=== PATIENT | female | born 1935 | race Caucasian/White ===

== ENCOUNTER 2019-03-05 05:57 | Inpatient (IN) ==
[2019-03-05 06:59] LABS: BASO# 0.01 X1000 (0.0-0.2); BASO% 0.2 % (0.0-0.8); HEMATOCRIT 35.9 % (37.0-47.0); HEMOGLOBIN 11.8 g/dL (12.0-16.0); LYMPH# 0.38 X1000 (1.2-3.4); LYMPH% 7.6 % (20.5-51.1); MCH 33.8 PG (27-31); MCHC 32.9 g/dL (33-37); MCV 102.9 FL (81-99); MONO# 0.22 X1000 (0.11-0.59); MONO% 4.4 % (1.7-9.3); MPV 11.7 FL (7.4-10.4); NEUT% 87.8 % (42.2-75.2); PLT 120 X1000 (130-400); RBC 3.49 XMIL (4.2-5.4); RDW 14.9 % (11.5-14.5); WBC 5.01 X1000 (4.8-10.8)
[2019-03-05 07:04] LABS: AGAP 13; ALBUMIN 3.1 g/dL (3.5-5.0); ALKALINE PHOSPHATASE 68 U/L (32-104); BUN 11 mg/dL (8-22); CALCIUM 7.7 mg/dL (8.8-10.2); CHLORIDE 101 mmol/L (98-107); COSMO 273; CREATININE 0.7 mg/dL (0.5-0.9); ESTIMATED GFR > 60; GLUCOSE 137 mg/dL (70-104); GOT 40 U/L (10-30); GPT 27 U/L (10-36); POTASSIUM 3.4 mmol/L (3.5-5.1); SODIUM 136 mmol/L (136-145); TCO2 22 mmol/L (25-35); TOTAL BILIRUBIN 0.82 mg/dL (0.20-1.00); TOTAL PROTEIN 6.2 g/dL (6.3-8.3)
[2019-03-05] MEDS ORDERED: TYLENOL PO ONE (07:14)
--- NOTE | 2019-03-05 07:18 | PROVIDER DOCUMENTATION ---
HPI-Fever - General Chief Complaint: Fever Stated Complaint: SOB, FEVER, UNABLE TO HOLD LIQUIDS DOWN Time Seen by Provider: 03/05/19 07:03 Source: patient, family Allergies/Adverse Reactions: Patient Allergies Allergy/AdvReac Type Severity Reaction Status Date / Time codeine AdvReac Intermediate NAUSEA/VOMI Verified 02/03/19 04:24 TING Home Medications: Home Medication List Medication Instructions Recorded Confirmed Last Taken Type Aspirin [Lo-Dose Aspirin EC] 81 mg PO HS 01/27/18 03/05/19 11/02/18 History Cholecalciferol (Vitamin D3) 1,000 unit PO DAILY 01/27/18 03/05/19 11/03/18 History [Vitamin D3] Losartan [Cozaar] 50 mg PO DAILY 01/27/18 03/05/19 11/03/18 History SIMVAstatin [Zocor] 80 mg PO QHS 01/27/18 03/05/19 11/02/18 History Dexamethasone 20 mg PO ORDERED 03/08/18 03/05/19 11/03/18 History Ferrous Sulfate 325 mg PO BID 03/08/18 03/05/19 11/03/18 History Omeprazole [Prilosec] 20 mg PO DAILY@0700 03/08/18 03/05/19 11/03/18 History Acetaminophen [Tylenol Extra 650 mg PO Q8-12H PRN PRN 03/10/18 03/05/19 11/02/18 History Strength] Bortezomib [Velcade] 2.1 mg SUBQ DIRECTED 04/30/18 03/05/19 11/03/18 History Cyanocobalamin 1,000 microgm IM ORDERED 04/30/18 03/05/19 10/27/18 History Cetirizine [Zyrtec] 10 mg PO DAILY 06/04/18 03/05/19 11/02/18 History Methocarbamol 1 tab PO TID PRN 09/17/18 03/05/19 10/27/18 History Valacyclovir [Valtrex] 500 mg PO DAILY 10/18/18 03/05/19 11/02/18 History Warfarin [Coumadin] 1 mg PO QHS 10/18/18 03/05/19 11/02/18 History - History of Present Illness-Fever Fever Severity/Quality: reports: greater than 100.5 F Onset/Duration: reports: 2 days ago Timing: reports: still present Severity: reports: moderate Context: reports: cancer-chemotherapy Cognitive Baseline: alert, oriented x3 Associated Symptoms: reports: cough, diarrhea, shortness of breath, trouble walking Similar Symptoms Previously?: No Review of Systems - Adult - REVIEW OF SYSTEMS - ADULT ROS:: unobtainable per condition Constitutional: reports: see HPI Eyes: reports: no symptoms reported Ears, Nose, Mouth & Throat: reports: no symptoms reported Cardiovascular: reports: no symptoms reported Respiratory: reports: cough, shortness of breath Gastrointestinal: reports: diarrhea Genitourinary: reports: no symptoms reported Musculoskeletal: reports: no symptoms reported Integumentary: reports: no symptoms reported Neurological: reports: no symptoms reported Psychiatric: reports: no symptoms reported Endocrine: reports: no symptoms reported Hematologic/Lymphatic: reports: no symptoms reported Allergic/Immunologic: reports: no symptoms reported All Other Systems: Reviewed and Negative Past History - Adult - PAST MEDICAL HISTORY-ADULT Review of Records: reports: Old Records Reviewed Physical Exam-General - CONSTITUTIONAL General Appearance: mild distress - EYES Eyes: PERRL/EOMI, pink conjunctivae - HEAD, EARS, NOSE, MOUTH & THROAT HENMT: normocephalic/atraumatic, moist mucous membranes - NECK Neck: non-tender, full range of motion, supple - RESPIRATORY Respiratory: wheezing (bilat) - CARDIOVASCULAR Cardiovascular: normal peripheral pulses, regular rate, rhythm, no edema, no JVD - GASTROINTESTINAL (ABDOMEN) Abdominal Exam: non tender, soft, no organomegaly - LYMPHATIC Lymphatic: no adenopathy - MUSCULOSKELETAL Back Exam: normal inspection, no CVA tenderness, no vertebral tenderness Extremity: normal range of motion, non-tender, normal gait, normal inspection - SKIN Integumentary: normal color. negative: rash - NEUROLOGIC Neurologic: supervisor shop II-XII nml as tested, grossly normal - PSYCHIATRIC Psych/Mental Status: normal mood/affect, normal thought content Progress - PLAN OF CARE/RESULTS Progress/Plan/Lab Results: Vital Signs - 8 hr 03/05/19 06:05 Temperature 103.1 F H Pulse Rate 102 H Respiratory Rate 19 Blood Pressure 164/85 O2 Sat by Pulse Oximetry 92 L 03/05/19 06:07 Influenza Screen - Final Nasopharyngeal Laboratory Results - last 24 hr 03/05/19 03/05/19 03/05/19 06:37 06:37 06:37 WBC 5.01 RBC 3.49 L Hgb 11.8 L Hct 35.9 L MCV 102.9 H MCH 33.8 H MCHC 32.9 L RDW Std Deviation 14.9 H Plt Count 120 L MPV 11.7 H Neut % (Auto) 87.8 H Lymph % (Auto) 7.6 L Mcminn % (Auto) 4.4 Eos % (Auto) 0.0 Baso % (Auto) 0.2 Neut # (Auto) 4.40 Lymph # (Auto) 0.38 L Mcminn # (Auto) 0.22 Eos # (Auto) 0.00 Baso # (Auto) 0.01 Sodium 136 Potassium 3.4 L Chloride 101 Carbon Dioxide 22 L Anion Gap 13 BUN 11 Creatinine 0.7 Estimated GFR/1.73 m2 > 60 BUN/Creatinine Ratio 16 Glucose 137 H Calculated Osmolality 273 Calcium 7.7 L Total Bilirubin 0.82 AST 40 H ALT 27 Alkaline Phosphatase 68 Total Protein 6.2 L Albumin 3.1 L Globulin 3.1 Albumin/Globulin Ratio 1.0 Plasma Lactate 1.2 Urine Source Urine Color Urine Turbidity Urine pH Ur Specific [place] Urine Protein Ur Glucose (Stick) Ur Ketones (Stick) Urine Blood Urine Nitrite Urine Bilirubin Urobilinogen Dipstick Urine Leukocytes Urine WBC (Auto) Urine RBC (Auto) U Epithel Cells (Auto) Urine Bacteria (Auto) 03/05/19 08:30 WBC RBC Hgb Hct MCV MCH MCHC RDW Std Deviation Plt Count MPV Neut % (Auto) Lymph % (Auto) Mcminn % (Auto) Eos % (Auto) Baso % (Auto) Neut # (Auto) Lymph # (Auto) Mcminn # (Auto) Eos # (Auto) Baso # (Auto) Sodium Potassium Chloride Carbon Dioxide Anion Gap BUN Creatinine Estimated GFR/1.73 m2 BUN/Creatinine Ratio Glucose Calculated Osmolality Calcium Total Bilirubin AST ALT Alkaline Phosphatase Total Protein Albumin Globulin Albumin/Globulin Ratio Plasma Lactate Urine Source CLEAN CATCH Urine Color YELLOW Urine Turbidity HAZY Urine pH 6.0 Ur Specific [place] 1.008 Urine Protein 50 A Ur Glucose (Stick) NEGATIVE Ur Ketones (Stick) 40 A Urine Blood MODERATE A Urine Nitrite NEGATIVE Urine Bilirubin NEGATIVE Urobilinogen Dipstick NORMAL Urine Leukocytes MODERATE A Urine WBC (Auto) TNTC A Urine RBC (Auto) 10-20 A U Epithel Cells (Auto) <10 Urine Bacteria (Auto) 4+ Orders Category Date Time Status Admit - [facility] Routine AdmDCTranf 03/05/19 09:21 Active Activity - Up with Assistance ORDERED Care 03/05/19 09:21 Active DVT/PE Risk Assess/Protocol [QM] ORDERED Care 03/05/19 09:21 Completed Intake and Output-Strict ORDERED Care 03/05/19 09:21 Active Update & Confirm Home Medicati ROUTINE Care 03/05/19 09:25 Active Vital Signs Order Q 8-HR ASSESS Care 03/05/19 09:21 Active Z-Document. for Tele Applied ORDERED Care 03/05/19 09:22 Completed Regular Diet Diet 03/05/19 09:22 Active CHEST-2 VIEWS [RAD] Stat Exams 03/05/19 07:14 Completed BLOOD CULTURE [BLDCUL] Stat Lab 03/05/19 06:45 Received CBC WITH DIFF [HEME] Routine Lab 03/06/19 06:00 Ordered CBC WITH ELECTRONIC DIFF [HEME] Stat Lab 03/05/19 06:37 Completed CMP [COMPREHENSIVE METABOLIC PANEL] [CHEM] Stat Lab 03/05/19 06:37 Completed COMPREHENSIVE METABOLIC PANEL [CHEM] Routine Lab 03/06/19 06:00 Ordered Flu Swab [INFLUENZA SCREEN A/B] Stat Lab 03/05/19 06:07 Completed LACTATE, PLASMA [CHEM] Stat Lab 03/05/19 06:37 Completed SPUTUM CULTURE WITH GRAM STAIN [RM] Routine Lab 03/05/19 09:23 Uncollected URINALYSIS W/POSS RFLX CULT [URINALYSIS] Stat Lab 03/05/19 08:30 Completed URINE CULTURE [RM] Routine Lab 03/05/19 09:20 Received Acetaminophen [Tylenol] Med 03/05/19 07:14 Discontinued 1,000 mg PO NOW ONE Acetaminophen [Tylenol] Med 03/05/19 09:21 Active 650 mg PO Q6H PRN PRN Azithromycin 500 mg/Ns [Zithromax 500 mg/Ns] Med 03/05/19 08:28 Discontinued 500 mg in 250 ml IV NOW CefTRIAXONE [Rocephin] 2 gm Med 03/05/19 08:28 Discontinued 0.9% Sodium Chloride Inj [Ns] 50 ml IV NOW Enoxaparin [Lovenox] Med 03/05/19 09:30 Discontinued 40 mg SUBQ Q24H Omeprazole [Prilosec] Med 03/06/19 07:00 Active 40 mg PO DAILY@0700 Incentive Spirometer RTQ4H Ot 03/05/19 11:30 Completed Incentive Spirometer RTQ4H Ot 03/05/19 15:30 Completed Incentive Spirometer RTQ4H Ot 03/05/19 19:30 Completed Incentive Spirometer RTQ4H Ot 03/05/19 23:30 Completed Incentive Spirometer RTQ4H Ot 03/06/19 03:30 Completed Incentive Spirometer RTQ4H Ot 03/06/19 07:30 Completed Incentive Spirometer RTQ4H Ot 03/06/19 11:30 Completed Incentive Spirometer RTQ4H Ot 03/06/19 15:30 Completed Incentive Spirometer RTQ4H Ot 03/06/19 19:30 Completed Incentive Spirometer RTQ4H Ot 03/06/19 23:30 Completed Telemetry [OM.EQ] Routine Ot 03/05/19 09:21 Active Transfer/Admit Order [TRANSFER] Routine Transfer 03/05/19 09:25 Completed Result Diagrams: 03/05/19 06:37 03/05/19 06:37 Departure - Departure Date of Disposition Decision: 03/05/19 Time of Disposition Decision: 01:00 DIAGNOSIS: Pneumonia Qualifiers: Laterality: right Disposition: ADMITTED INPATIENT 09 Certified Medical Emergency: Emergent Condition: Serious - Critical Care Note This patient required my direct & personal management of CC.: Yes Total Time (mins): 41 Critical Care Statement: This patient required my direct personal management to treat or rule out processes, the absence of which, could potentiallly result in sudden, clinically significant life or limb threatening deterioration. Attestation - Physician/ LETA Attestation The physician spent face to face time with patient:: Yes Advanced Practice Provider documentation review:: Supervising physician onsite and consulted in the evaluation and care of this patient. The physician did have a face to face encounter with the patient.
--- NOTE | 2019-03-05 07:38 | Diag Imaging Result Doc PS360 ---
EXAM: CHEST-2 VIEWS HISTORY: short of breath TECHNIQUE: Chest two views COMPARISON: None. FINDINGS: The lungs are hyperexpanded. There are dense infiltrates in the mid right lung. No cardiomegaly. Mild increased interstitial markings throughout both lungs representing fibrosis or pulmonary edema. Trace pleural fluid. IMPRESSION: Right upper lobe pneumonia with fibrosis or pulmonary edema. Electronically signed by Paresh Mckeon 03/05/2019 7:36 AM
[2019-03-05] MEDS ORDERED: ZITHROMAX 500 MG/NS 500 MG/250 ML IVPB IV ONE (08:28)
[2019-03-05] MEDS ORDERED: ROCEPHIN 2 GM in NS 50 ML IV ONE (08:28)
[2019-03-05 08:44] LABS: URINE SOURCE CLEAN CATCH
[2019-03-05 08:49] LABS: BILIRUBIN URINE NEGATIVE (NEGATIVE); BLOOD URINE MODERATE (NEGATIVE); COLOR YELLOW; GLUCOSE URINE NEGATIVE (NEGATIVE); KETONE URINE 40 mg/dL (NEGATIVE); LEUKOCYTES URINE MODERATE (NEGATIVE); NITRITE URINE NEGATIVE (NEGATIVE); PROTEIN URINE 50 mg/dL (NEGATIVE); SP GRAVITY URINE 1.008; TURBIDITY URINE HAZY (CLEAR); UROBILINOGEN URINE NORMAL (NORMAL)
[2019-03-05 08:50] LABS: UR EPITHELIAL CELLS <10 /HPF (<10); URINE BACTERIA 4+ /HPF; URINE WBC TNTC /HPF (<10)
[2019-03-05] MEDS ORDERED: LOVENOX SUBQ SCH (09:30)
[2019-03-05] MEDS ORDERED: ZITHROMAX 500 MG/NS 500 MG/250 ML IVPB ONE (09:47)
[2019-03-05] MEDS ORDERED: ROBITUSSIN-DM PO PRN (09:47)
[2019-03-05] MEDS ORDERED: DUONEB (A & A) INH PRN (09:57)
--- NOTE | 2019-03-05 10:24 | HISTORY AND PHYSICAL ---
CHIEF COMPLAINT: Fever, cough, shortness of breath. HISTORY OF PRESENT ILLNESS: This is an 83-year-old female with a history of multiple myeloma followed by Dr. Wayne, as well as gastroesophageal reflux disease and hypertension. She presented to the ER complaining of 48 hours of productive cough, fever, and just generalized body aches and feeling weak. The daughter checked her temperature prior to coming to the emergency room, stated it was 102. On arrival to the emergency room, she had a fever of 103.1 with room air saturations of 92. Her chest x-ray revealed right upper lobe pneumonia with fibrosis or pulmonary edema. Blood cultures were obtained. She was given Rocephin and azithromycin in the emergency room. She is being admitted for further evaluation and treatment. PAST MEDICAL HISTORY: 1. Multiple myeloma, currently on Velcade and Revlimid, followed by Dr. Wayne. 2. Hypertension. 3. Seasonal allergies. 4. Gastroesophageal reflux disease. PAST SURGICAL HISTORY: 1. Cholecystectomy. 2. Hysterectomy. SOCIAL HISTORY: She denies tobacco or illicit drug use. She does drink occasionally, but socially. REVIEW OF SYSTEMS: Discussed with the patient with pertinent positives stated in the HPI. She denies any syncope or dizziness, any chest pain or palpitations, any nausea, vomiting, constipation, hematuria, dysuria, frequency, urgency, any black or bloody vomitus or stools. PHYSICAL EXAMINATION: GENERAL: This is an 83-year-old female, who is lying flat on the stretcher in the emergency room in no distress. VITAL SIGNS: Blood pressure is 164/85 with a heart rate of 100, respirations 19. Temperature is 103.1 degrees oral with room air saturations 92%. EYES: Pupils are equal, round, react to light. EOMS are intact. Sclerae are anicteric. HENT: Head is normocephalic, atraumatic. Mucous membranes are moist. NECK: Supple with trachea midline. CARDIOVASCULAR: Regular rate and rhythm. S1 and S2 appreciated. She has no lower extremity edema. Calves are nontender bilateral to palpation with peripheral pulses palpable x4 extremities. PULMONARY: She has wheezes scattered throughout with some rhonchi to the right that do not clear to cough. Chest rises and falls symmetric to respiration. Chest wall is nontender to palpation. GASTROINTESTINAL: Abdomen is soft, nontender, nondistended with bowel sounds in all 4 quadrants. GENITOURINARY: She has no CVA or suprapubic tenderness. SKIN: Warm and dry with no rashes or lesions noted. NEUROLOGIC: She is alert and oriented x3. LABS: WBC is 5.01 with hemoglobin 11.8, hematocrit 35.9, and platelets of 120. Sodium is 136, potassium 3.4, BUN 11, creatinine 0.7, glucose 137. Urinalysis reveals moderate blood with moderate leukocytes, too numerous to count white blood cells, 10 to 20 red blood cells, 4+ bacteria. MICROBIOLOGY: Flu swabs are negative for flu A and B. Blood cultures x2. Urine culture pending. ASSESSMENT AND PLAN: 1. Right upper lobe pneumonia. We will obtain a sputum specimen. Antibiotic coverage of cefepime and Zyvox. Incentive spirometer. DuoNebs every 4 hours or every 2 hours as needed. We will gently hydrate. 2. Hypertension. Will continue her home medications. 3. Urinary tract infection. Antibiotics as above and further antibiotics will be pending cultures. 4. Gastroesophageal reflux disease. Prilosec. 5. Seasonal allergies. We will continue her Zyrtec. 6. Multiple myeloma. I did discuss the patient with Dr. Wayne, who recommends that we hold Velcade and Revlimid while in the hospital. Will obtain immunoglobulins. 7. For deep vein thrombosis prophylaxis will use Lovenox. 8. For gastrointestinal prophylaxis will use Prilosec. Further treatments pending hospital course. Patient seen and examined by me face to face, all the laboratory, vitals signs and images were reviewed, patient presented with shortness of breath, cough and subjective fever for a couple days, she has a history of multiple myeloma and currently under treatment by Dr Wayne, which has been informed about the admission, image showed right upper lobe pneumonia, she will be placed on antibiotics, breathing treatment, oxygen as well, telemetry, we will monitor this patient on a daily basis, she has right lung crepitus and rhonchi in the right upper part, I agree with the rest of the MAILROOM ASSISTANT's assessment and plan, Santiago Cordon MD Dictated by TONJA Swain for Santiago Tidwell MD cc: TONJA Swain MD [facility]
[2019-03-05] MEDS: ZYVOX PO SCH ×2 (10:45→20:21)
[2019-03-05] MEDS: SOLU-MEDROL IV SCH ×2 (10:46→18:10)
[2019-03-05] MEDS ORDERED: KLOR-CON PO ONE (11:05)
[2019-03-05] MEDS: DUONEB (A & A) INH SCH ×4 (11:26→23:08)
[2019-03-05 12:39] LABS: INR 1.17; PROTIME 15.9 Seconds (11.0-16.0)
[2019-03-05] MEDS: MAXIPIME 1 GM in NS 50 ML IV SCH ×2 (12:48→23:03)
[2019-03-05] MEDS: TYLENOL PO PRN ×2 (13:19→23:58)
[2019-03-05] MEDS: COUMADIN PO SCH (20:21)
[2019-03-06] MEDS: DUONEB (A & A) INH SCH ×6 (03:23→22:40)
[2019-03-06] MEDS: SOLU-MEDROL IV SCH ×4 (06:01→21:25)
[2019-03-06] MEDS: PRILOSEC PO SCH (06:02)
[2019-03-06 07:55] LABS: BASO# 0.01 X1000 (0.0-0.2); BASO% 0.2 % (0.0-0.8); EOS# 0.01 X1000 (0.0-0.7); EOS% 0.2 % (0.0-10.0); HEMATOCRIT 35.6 % (37.0-47.0); HEMOGLOBIN 11.8 g/dL (12.0-16.0); IMM GRAN# 0.03 X1000 (0.0-0.04); IMM GRAN% 0.6 % (0.0-0.5); LYMPH# 0.45 X1000 (1.2-3.4); LYMPH% 8.5 % (20.5-51.1); MCH 33.2 PG (27-31); MCHC 33.1 g/dL (33-37); MCV 100.3 FL (81-99); MONO# 0.24 X1000 (0.11-0.59); MONO% 4.5 % (1.7-9.3); MPV 11.7 FL (7.4-10.4); NEUT# 4.57 X1000 (1.4-6.5); PLT 153 X1000 (130-400); RBC 3.55 XMIL (4.2-5.4); RDW 15.2 % (11.5-14.5); WBC 5.31 X1000 (4.8-10.8)
[2019-03-06 07:58] LABS: AGAP 12; ALB/GLOB RATIO 1.1; ALBUMIN 3.3 g/dL (3.5-5.0); ALKALINE PHOSPHATASE 64 U/L (32-104); BUN 14 mg/dL (8-22); CALCIUM 8.5 mg/dL (8.8-10.2); CHLORIDE 106 mmol/L (98-107); COSMO 283; CREATININE 0.8 mg/dL (0.5-0.9); ESTIMATED GFR > 60; GLUCOSE 157 mg/dL (70-104); GOT 19 U/L (10-30); GPT 21 U/L (10-36); POTASSIUM 3.3 mmol/L (3.5-5.1); SODIUM 140 mmol/L (136-145); TCO2 22 mmol/L (25-35); TOTAL BILIRUBIN 0.35 mg/dL (0.20-1.00); TOTAL PROTEIN 6.3 g/dL (6.3-8.3)
[2019-03-06 08:36] LABS: LARGE PLATELETS 1+; LYMPHS 11 % (21-51); MONO 6 % (1-9); SEGS 83 % (42-75)
[2019-03-06] MEDS ORDERED: KLOR-CON PO ONE (08:38)
[2019-03-06] MEDS: ZYRTEC PO SCH (09:18)
[2019-03-06] MEDS: COZAAR PO SCH (09:18)
[2019-03-06] MEDS: ZYVOX PO SCH ×2 (09:18→20:43)
--- NOTE | 2019-03-06 12:00 | PROGRESS NOTE ---
DATE: 03/06/2019 SUBJECTIVE: This patient states that she is breathing much better but now she is complaining of a diarrhea. I will ask for a C. difficile toxin and antigen, WBC in the stool. She is not on home O2. She is hypokalemic and I will replace the potassium. OBJECTIVE: Vital Signs: Temperature 98.7 degrees, pulse 83, respiratory rate 18, oxygen saturation 93 on 2 L of nasal cannula. HEENT: Head normocephalic. No trauma. PERRLA. Neck: Supple. No JVD. No masses. Central trachea. Chest: Right lung with crepitus and rhonchi, mostly in the upper and middle parts. No wheezing. No rales. Abdomen: Soft, nontender, nondistended. No hepatosplenomegaly. Extremities: No edema, no clubbing, no cyanosis. Neurological Examination: The patient is alert and oriented x3. No focal neurological deficits but some generalized weakness. Laboratory: WBC 5.1, hemoglobin 11.8, hematocrit 35.6, platelets 153,000. Sodium 140, potassium 3.3, chloride 106, bicarbonate 22, BUN 14, creatinine 0.8, glucose 157, calcium 8.5. AST 19, ALT 21, alkaline phosphatase 64, albumin 3.3. ASSESSMENT AND PLAN: 1. Right upper lobe pneumonia. We will continue with antibiotics. She has been placed on cefepime and Zyvox, incentive spirometer, DuoNeb every 4 hours as scheduled, and oxygen supplementation. A sputum culture has been negative as well as the blood culture. For now, we will monitor. She is feeling better. 2. Hypertension. Continue home medications. 3. Urinary tract infection. Continue with the same antibiotics that she is on right now. 4. Gastroesophageal reflux disease. Continue with the Prilosec. 5. Seasonal allergies. Continue with Zyrtec. 6. Multiple myeloma. We discussed with Dr. Wayne about his treatment with Velcade and Revlimid while he is in the hospital. Immunoglobulins are okay except a little bit low IgA. 7. Deep vein thrombosis prophylaxis with Lovenox. 8. Gastrointestinal prophylaxis. She is already on Prilosec. 9. Diarrhea. It is not severe but we will ask for Clostridium difficile antigen and toxin, and also WBC in the stool. 10. Hypokalemia. I will replace the potassium. cc: Santiago Tidwell MD
[2019-03-06] MEDS: MAXIPIME 1 GM in NS 50 ML IV SCH ×2 (13:14→23:37)
[2019-03-06] MEDS: ZOCOR PO SCH (20:43)
[2019-03-06] MEDS: ASPIRIN EC PO SCH (20:43)
[2019-03-06] MEDS: COUMADIN PO SCH (20:43)
[2019-03-07] MEDS: DUONEB (A & A) INH SCH ×6 (03:23→23:13)
[2019-03-07] MEDS: SOLU-MEDROL IV SCH ×3 (06:02→21:00)
[2019-03-07] MEDS: PRILOSEC PO SCH (06:03)
[2019-03-07 07:41] LABS: CALCIUM 8.7 mg/dL (8.8-10.2); CREATININE 0.9 mg/dL (0.5-0.9); POTASSIUM 3.6 mmol/L (3.5-5.1)
--- NOTE | 2019-03-07 07:42 | Diag Imaging Result Doc PS360 ---
EXAM: CHEST-PORTABLE INDICATION: dyspnea TECHNIQUE: One view COMPARISON: 03/05/2019 FINDINGS: There is persistent consolidation throughout the right lung, most significant at the mid and upper lung zone. The density of the consolidation has improved slightly at the mid and upper lung zone. No new consolidation is identified. Cardiac silhouette is stable. IMPRESSION: Marginal improvement of consolidation on the right at the mid and upper lung zone. Electronically signed by Serg Latif 03/07/2019 7:40 AM
[2019-03-07] MEDS: ZYRTEC PO SCH (09:28)
[2019-03-07] MEDS: ZYVOX PO SCH (09:28)
[2019-03-07] MEDS: COZAAR PO SCH (09:28)
[2019-03-07] MEDS: MAXIPIME 1 GM in NS 50 ML IV SCH (12:26)
--- NOTE | 2019-03-07 14:38 | PROGRESS NOTE ---
DATE: 03/07/2019 SUBJECTIVE: This patient is resting comfortably in bed. We have a sputum culture that showed Pseudomonas aeruginosa. Also, we saw a urine culture that showed a Klebsiella pneumonia, C. Difficile toxin is negative but C. difficile antigen is positive. She has been having loose bowel movements except today she one formed bowel movement. She has been placed on broad-spectrum antibiotics with linezolid, IV cefepime and IV and also vancomycin p.o. due to the possibility of C. diff. OBJECTIVE: Vital Signs: Temperature 98 degrees, pulse 91, respiratory rate 16, blood pressure 129/59, and oxygen saturation 96% on 2 L of nasal cannula. HEENT: Head normocephalic. No trauma. PERRLA. Neck: Supple. No JVD. No masses. Central trachea. Chest: Right lung with crepitus and rhonchi mostly the upper part and middle part. No wheezing. No rales. Abdomen: Soft, nontender, and nondistended. No hepatosplenomegaly. Extremities: No edema. No clubbing. No cyanosis. Neurological: The patient is alert and oriented x3. No focal neurological deficit but a little bit of generalized weakness. LABORATORY: Sodium 140, potassium 3.6, chloride 107, bicarbonate 20, BUN 22, creatinine 0.9, glucose 148, and calcium 8.7. ASSESSMENT AND PLAN: 1. Right upper lobe pneumonia with a positive culture that showed Pseudomonas. We will continue with antibiotics. She has been placed on cefepime and Zyvox, incentive spirometer, DuoNeb and oxygen supplementation. Infectious Disease Department has been consulted. 2. Hypertension. Continue home medication. 3. Urinary tract infection with a positive culture that showed Klebsiella pneumoniae, continue with the same treatment. 4. Possible C. Diff colitis. We do have a positive antigen, but negative toxin. Since she has been having diarrhea, I will put this patient on vancomycin. Infectious Disease Department has been consulted. 5. Gastroesophageal reflux disease. Continue with proton pump inhibitors. 6. Seasonal allergies. Continue with Zyrtec. 7. Multiple myeloma. We discussed the case with Dr. Wayne upon admission regarding her medications with Velcade and Revlimid. Immunoglobulins are okay except a little bit low IgA. 8. Deep vein thrombosis prophylaxis with Lovenox. 9. Hypokalemia resolved. cc: Santiago Tidwell MD
[2019-03-07] MEDS: VANCOCIN PO SCH ×2 (15:08→20:52)
[2019-03-07] MEDS: MAXIPIME 2 GM in NS 100 ML IV SCH (15:08)
--- NOTE | 2019-03-07 16:31 | INFECTIOUS DISEASE CONSULT REP ---
DATE: 03/07/2019 CONCLUSION: The patient has a Pseudomonas pneumonia and a Klebsiella urinary tract infection. The urinary tract infection is asymptomatic. The patient has a low IgA level, it is only 32 and this predisposes her to get infections, especially involving pneumonia, bronchitis and sinusitis. Today Dr. Rosen discovered that the patient has Clostridium difficile diarrhea. It is interesting to note that the patient told me that her diarrhea started before she was given antibiotics in the hospital. RECOMMENDATIONS: I agree with treating the patient with cefepime. I have increased the dose to 2 g IV every 8 hours. The patient's IgG level is normal and the IgA level is low but unfortunately there is not a product that can be given the patient that will bring up the IgA level. The patient's Klebsiella urinary tract infection is asymptomatic and therefore it does not require antibiotic treatment. However, the patient is on cefepime for the Pseudomonas pneumonia and the cefepime has good coverage of the patient's Klebsiella organism and therefore the urinary tract infection will be treated because of the use of cefepime. I agree with Dr. Rosen's starting the patient on p.o. vancomycin for Clostridium difficile diarrhea. DISCUSSION: The patient says approximately 5 days ago she became increasingly short of breath. She had a cough and fever and she produced sputum that was green and/or yellow in color. She also had anorexia and as mentioned above, she started having diarrhea which actually was prior to her receiving antibiotics in the hospital. The patient's CBC shows a white count of 5310, hemoglobin 11.8 and platelet count of 153,000. Creatinine is 0.9. GFR is 60. Liver function studies are normal. IgG is 849, IgA is 32. The patient's chest x-ray shows there has been improvement in the consolidation that involves the whole right lung. PAST MEDICAL HISTORY/REVIEW OF SYSTEMS: Eyes and ears: Her hearing and vision is good. Neck: No stiffness. Respiratory: See present illness. GI: See present illness. Genitourinary: No dysuria or flank pain. Bones, joints, muscles: The patient has pain in her right shoulder which she attributes to osteoarthritis. Integument: No rash. Neurologic: No seizures. No recent loss of motor or sensory function. MANAGING PRINCIPAL HISTORY: She is a 6, para 6, AB 0. She has had a hysterectomy. PREVIOUS HOSPITALIZATIONS AN OPERATIONS: She has had 6 labor and deliveries, a hysterectomy and cholecystectomy. MEDICAL DISEASES: Positive for obesity, hypertension, multiple myeloma, hyperlipidemia. PRESENT ILLNESS: The patient has a Clostridium difficile toxin which was negative however the Clostridium difficile antigen was positive. INFECTIOUS DISEASE HISTORY: Negative for pneumonia and UTI. FAMILY HISTORY: Positive for diabetes mellitus, stroke, cancer and myocardial infarction. SOCIAL HISTORY: [place] She is a . She lives with her family. There are 2 dogs where she lives which she enjoys playing with. She is allergic to codeine. She occasionally drinks wine. She does not smoke cigarettes or abuse drugs. HOME MEDICATIONS: Include Extra Strength Tylenol, aspirin, Velcade, Zyrtec, dexamethasone, Cozaar, methocarbamol, Prilosec, Zocor, Valtrex, and Coumadin. PHYSICAL EXAM: Temperature is 98 degrees, pulse 91, respirations 16, blood pressure 129/59, patient weighs 143 pounds. General: This is a slightly obese but otherwise fairly healthy appearing, she is in no acute distress. Head/eyes/ears/nose/throat: She can hear my spoken words and see near objects. She is wearing dentures. She does not have any white coating of her tongue . Neck: There is no pain with movement of her neck. Respiratory: There were rales heard on the right side, left side was clear. Cardiovascular: Heart rate is regular. Abdomen: Soft and nontender. Neurologic: The patient is alert, she can ambulate without difficulty. There is no tremor. Her sensation was intact to touch. Her memory as regarding her medical history was intact. Integument: No rashes noted. Thank you for the consult. cc: Danielito Clement MD
[2019-03-07] MEDS: COUMADIN PO SCH (20:52)
[2019-03-07] MEDS: ZOCOR PO SCH (20:52)
[2019-03-07] MEDS: ASPIRIN EC PO SCH (20:52)
[2019-03-08] MEDS: MAXIPIME 2 GM in NS 100 ML IV SCH ×4 (01:11→23:36)
[2019-03-08] MEDS: VANCOCIN PO SCH ×4 (02:14→20:52)
[2019-03-08] MEDS: DUONEB (A & A) INH SCH ×6 (03:23→23:41)
[2019-03-08] MEDS: PRILOSEC PO SCH ×2 (05:36→06:17)
[2019-03-08] MEDS: SOLU-MEDROL IV SCH ×2 (05:36→14:33)
[2019-03-08 07:13] LABS: BASO# 0.02 X1000 (0.0-0.2); BASO% 0.2 % (0.0-0.8); HEMATOCRIT 32.8 % (37.0-47.0); HEMOGLOBIN 10.8 g/dL (12.0-16.0); IMM GRAN# 0.08 X1000 (0.0-0.04); IMM GRAN% 0.7 % (0.0-0.5); LYMPH# 1.02 X1000 (1.2-3.4); LYMPH% 9.1 % (20.5-51.1); MCHC 32.9 g/dL (33-37); MCV 100.3 FL (81-99); MONO# 0.43 X1000 (0.11-0.59); MONO% 3.8 % (1.7-9.3); MPV 11.6 FL (7.4-10.4); NEUT# 9.65 X1000 (1.4-6.5); NEUT% 86.2 % (42.2-75.2); PLT 159 X1000 (130-400); RBC 3.27 XMIL (4.2-5.4); RDW 16.1 % (11.5-14.5)
[2019-03-08 07:28] LABS: CREATININE 0.9 mg/dL (0.5-0.9); POTASSIUM 4.3 mmol/L (3.5-5.1)
[2019-03-08 07:34] LABS: LYMPHS 11 % (21-51); SEGS 89 % (42-75)
[2019-03-08] MEDS: COZAAR PO SCH (09:38)
[2019-03-08] MEDS: ZYRTEC PO SCH (09:38)
--- NOTE | 2019-03-08 10:56 | PROGRESS NOTE ---
DATE: 03/08/2019 SUBJECTIVE: Patient resting quietly in bed. No complaints voiced at this time. States that she has had 1 loose bowel movement earlier this morning, but none otherwise. OBJECTIVE: Vital signs: Temperature 98.3 degrees, pulse 88, respirations 18, blood pressure 156/73, saturating 100% on 2 L via nasal cannula. General: This is an 83-year-old female sitting up in the bed and answers questions appropriately. HEMNT: Normocephalic, atraumatic. Normal ENT inspection. Oropharynx and nares are clear. Eyes: Pupils are equal, round, and reactive to light and accommodation. Extraocular movements are intact. Neck: Normal inspection. Normal range of motion. Lungs: Clear to auscultation this morning bilaterally. Equal lung expansion and chest wall movement noted. Heart: Regular rate and rhythm without murmurs, rubs, or gallops. Abdomen: Soft, nontender, nondistended. Bowel sounds are present x4 quadrants. Musculoskeletal: She has some generalized weakness but moves all extremities well. Neurological: The patient is alert and oriented x3 with no focal neurological deficit. LABORATORY DATA: White blood cell count of 11.20, hemoglobin 10.8, hematocrit 32.8, platelets 159,000. Sodium 142, potassium 4.3, chloride 109, CO2 of 22, BUN of 27, creatinine 0.9, glucose of 140. ASSESSMENT AND PLAN: 1. A right upper lobe pneumonia with positive culture that showed Pseudomonas. We continue with her antibiotics of cefepime and Zyvox. Continue her pulmonary toilet. Infectious Disease is also following. 2. Urinary tract infection, Klebsiella pneumoniae. We will continue with her antibiotics. 3. Possible Clostridium difficile colitis. She was placed on vancomycin yesterday due to having some diarrhea. She had a positive antigen, but a negative toxin. She has only had 1 diarrhea stool earlier this morning that was loose so we will continue to follow. 4. Hypertension. Continue her home medication. 5. Gastroesophageal reflux disease. Continue with her proton pump inhibitors. 6. Multiple myeloma. Aware and the case was discussed with Dr. Wayne. Dictated by TONJA Fatima for Ludwig Baldwin MD cc: TONJA Fatima MD
--- NOTE | 2019-03-08 12:39 | HEMO/ONC CONSULTATION ---
DATE: 03/08/2019 CHIEF COMPLAINT: We have been consulted for further management. The patient has multiple myeloma. HISTORY OF PRESENT ILLNESS: Mrs. Ribera presented to the emergency department 03/05/2019 complaining of fever, some cough, shortness of breath, diarrhea trouble walking due to being extremely weak. While in the emergency department patient had x-ray and did show right upper lobe pneumonia. She was admitted at that time for further evaluation and management. Mrs. Ribera is well known to us in our clinic where she follows up for her multiple myeloma, follow-up of her IgG multiple myeloma. Her original SPEP of 1.2. and Light chains was 2634. Patient was 2380. Bone marrow biopsy report implies the patient has a abnormal fish analysis. The patient was started on Velcade and Decadron on 03/03/2018. We added Revlimid 10 mg on 10/18/2008. The patient has been tolerating her treatment relatively well since beginning that. The patient's last received her Velcade 02/28/2019. PAST MEDICAL HISTORY: Multiple myeloma, hypertension, allergies and GERD. PAST SURGICAL HISTORY: Cholecystectomy hysterectomy. FAMILY HISTORY: Noncontributory. SOCIAL HISTORY: Denies any tobacco, alcohol, illicit drug use. ALLERGIES: Codeine. HOME MEDICATIONS: Tylenol Extra Strength, aspirin 81 mg, Velcade, Zyrtec, vitamin D3, vitamin B12, dexamethasone, ferrous sulfate, Cozaar, methocarbamol, Prilosec, Zocor, Valtrex, Coumadin REVIEW OF SYSTEMS: Negative unless mentioned in HPI. PHYSICAL EXAM: Vital Signs: Temperature 98.3 degrees, heart rate 88, respiratory rate 18, blood pressure 156/73, saturating 100% on nasal cannula. General: Patient is awake, lying in bed, no acute distress noted. HEENT: Anicteric. Pupils PERRLA. Mucous membranes moist. Neck: Supple, trachea midline. Cardiovascular: S1, S2. Regular rhythm and rhythm. Chest: Bilateral breath sounds with rhonchi bilaterally. Gastrointestinal: Abdomen is soft, nontender, nondistended. Bowel sounds present in all 4 quadrants. Skin: Warm, dry, and intact. No petechiae, no clubbing, no rashes, no cyanosis. Neurologic: Alert and oriented x3. No focal deficits noted. LABORATORY DATA: White count 11.2, hemoglobin 11, hematocrit 32.8, platelets are 159. Potassium 4.3, BUN 27, creatinine 0.9. ASSESSMENT AND PLAN: 1. IgG multiple myeloma: At this time, her Revlimid, Decadron, and okay to hold until she is better. When she is better in improved and back to baseline we will consider restarting treatment at that time. For now continue to monitor. 2. Right upper lobe pneumonia: Continue antibiotics as ordered per primary medical team and Infectious Disease. 3. Urinary tract infection. Continue antibiotics as ordered. 4. Gastroesophageal reflux disease. Continue home medications. 5. Hypertension. Continue home medications. 6. Deep venous thrombosis prophylaxis. Continue Lovenox as ordered. Dictated by TONJA Mora for Michael Wayne MD Patient seen and examined. As above. Patient with multiple myeloma with good control. Admitted with right upper lobe pneumonia and urinary tract infection. Antibiotics per Dr. Clement. I will continue to follow along. Michael Wayne M.D. [facility]
--- NOTE | 2019-03-08 16:26 | INFECTIOUS DISEASE PROGRESS NO ---
DATE: 03/08/2019 DIAGNOSES: The patient has the following diagnoses: 1. Pseudomonas pneumonia. 2. Klebsiella urinary tract infection. 3. Clostridium difficile diarrhea. 4. Low IgA level. MEDICATIONS: The patient is receiving cefepime for the Pseudomonas and Klebsiella infections, and p.o. vancomycin for the Clostridium difficile diarrhea. Unfortunately, there is no replacement product for a low IgA level. PHYSICAL EXAMINATION: Vital Signs: Temperature is 98 degrees, pulse 86, respirations 18, blood pressure 150/76. General: This is a somewhat ill-appearing, elderly female. She is in no acute distress. Head, eyes, ears, nose, and throat: She can hear my spoken words and see near objects. She does not have any white coating on her tongue. Neck: She does not have any pain when she moves her neck. Respiratory: Today, the patient's lungs were clear. Cardiovascular: Heart rate is regular. Abdomen: Soft and nontender. LAB AND X-RAY: There are no new radiographic studies today. The patient's CBC for today shows a white blood cell count of 11,200, hemoglobin 10.8 and platelet count 159,000. The patient's creatinine is 0.9, the GFR is 60. ASSESSMENT AND PLAN: The patient has a Pseudomonas pneumonia and a Klebsiella urinary tract infection, which are being treated by cefepime. The patient's Clostridium difficile diarrhea is being treated by oral vancomycin. The patient does have a leukocytosis; however, she is on a high level of steroids, and therefore the leukocytosis I think is secondary to the steroids and not secondary to an infection. Finally the patient has a low IgA level, but unfortunately there is no replacement product that will increase the patient's IgA level. COMORBIDITIES: The patient's comorbidities reveal she is elderly. 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 She also has multiple myeloma. cc: Danielito Clement MD
--- NOTE | 2019-03-08 18:17 | PROGRESS NOTE ---
DATE: 03/08/2019 ADDENDUM: SUBJECTIVE: The patient is sitting up in bed. No complaints. She says her diarrhea is resolved, as far as no more watery diarrhea. Her stools are formed. OBJECTIVE: Blood pressure 150/76, heart rate of 86, respiratory rate 18, temperature 98 degrees, 98% on 2 L. Cardiovascular: Regular rate and rhythm. Pulmonary: Bilateral breath sounds, clear to auscultation. GI: Soft, nontender, nondistended. Bowel sounds are positive. LABORATORY DATA: White count 11, hemoglobin and hematocrit 10 and 32, platelets 159,000. Basic was normal. ASSESSMENT AND PLAN: Problem list: 1. She has a right upper lobe pneumonia, positive for pseudomonas per Dr. Clement. It is pansensitive, so I think we could probably do Levaquin as an option. Klebsiella is sensitive to Levaquin as well, as far as a p.o. option. Dr. Clement has placed her on cefepime. 2. Clostridium difficile colitis, which is antigen-positive and toxin-negative, but we are still treating as a Clostridium difficile colitis. 3. Disposition: I think probably going to go home soon, I would think. Consider p.o. vancomycin and Levaquin, but at the discretion of course of Dr. Clement. cc: Ludwig Baldwin MD
[2019-03-08] MEDS: ZOCOR PO SCH (20:52)
[2019-03-08] MEDS: ASPIRIN EC PO SCH (20:52)
[2019-03-08] MEDS: COUMADIN PO SCH (20:52)
[2019-03-09] MEDS: VANCOCIN PO SCH ×3 (02:15→14:34)
[2019-03-09] MEDS: SOLU-MEDROL IV SCH ×2 (02:15→14:36)
[2019-03-09] MEDS: DUONEB (A & A) INH SCH ×4 (04:00→14:46)
[2019-03-09] MEDS: PRILOSEC PO SCH (06:49)
[2019-03-09 07:00] LABS: BASO# 0.01 X1000 (0.0-0.2); BASO% 0.1 % (0.0-0.8); EOS# 0.01 X1000 (0.0-0.7); EOS% 0.1 % (0.0-10.0); HEMATOCRIT 34.4 % (37.0-47.0); IMM GRAN# 0.16 X1000 (0.0-0.04); IMM GRAN% 1.4 % (0.0-0.5); LYMPH# 0.85 X1000 (1.2-3.4); LYMPH% 7.4 % (20.5-51.1); MCH 32.8 PG (27-31); MCV 102.7 FL (81-99); MONO# 0.42 X1000 (0.11-0.59); MONO% 3.7 % (1.7-9.3); NEUT# 10.01 X1000 (1.4-6.5); NEUT% 87.3 % (42.2-75.2); PLT 183 X1000 (130-400); RBC 3.35 XMIL (4.2-5.4); RDW 16.8 % (11.5-14.5); WBC 11.46 X1000 (4.8-10.8)
[2019-03-09 07:37] LABS: CALCIUM 9.2 mg/dL (8.8-10.2); CREATININE 0.9 mg/dL (0.5-0.9); POTASSIUM 4.3 mmol/L (3.5-5.1)
--- NOTE | 2019-03-09 08:08 | HEMO/ONC PROGRESS NOTE ---
DATE: 03/09/2019 SUBJECTIVE: Patient says she is slowly feeling better. Shortness of breath continues to slowly improve. No new complaints at this time. OBJECTIVE: Vital Signs: Temperature of 97.4 degrees, heart rate 79, respiratory rate 18, blood pressure is 147/66, 99% on nasal cannula. General: The patient is awake, lying in bed. No acute distress noted. HEENT: Anicteric. Pupils PERRLA. Mucous membranes appear to be moist. Cardiovascular: S1, S2. Regular rate and rhythm. Chest: Breath sounds diminished bilaterally. Abdomen: Soft, nontender. Bowel sounds present in all 4 quadrants. Neurologic: Alert and oriented x3. No focal deficits noted. Laboratory Data: White count 11.46, hemoglobin 11.2, hematocrit 34.4, platelets are 183,000. Potassium 4.3, BUN 27, creatinine 0.9. ASSESSMENT AND PLAN: 1. IgG multiple myeloma: Treatment on hold at this time. Once she has improved, we will restart treatment at that time. Myeloma is under good control though. 2. Right upper lobe pneumonia: Continue antibiotics as ordered per primary medical team and infectious disease. 3. Urinary tract infection. Continue antibiotics as ordered. 4. Clostridium difficile: Continue recommendations per the patient's primary medical team and infectious disease. 5. Deep venous thrombosis prophylaxis: Continue Lovenox as ordered. Dictated by TONJA Mora for Michael Wayne MD Patient seen and examined. She is feeling much better and eager to get home. Continue antibiotics for pneumonia and UTI and C. difficile per Dr. Ott recommendation. Low IgA due to multiple myeloma and therapy. She is okay for discharged from my standpoint. Follow-up in the clinic in a week. Michael Wayne M.D. [facility]
[2019-03-09 08:14] VITALS: BP 150/72
[2019-03-09] MEDS: MAXIPIME 2 GM in NS 100 ML IV SCH ×2 (09:27→15:12)
[2019-03-09] MEDS: COZAAR PO SCH (09:28)
[2019-03-09] MEDS: ZYRTEC PO SCH (09:28)
--- NOTE | 2019-03-09 12:07 | INFECTIOUS DISEASE PROGRESS NO ---
DATE: 03/09/2019 HISTORY: Patient has the following diagnoses: 1. Pseudomonas aeruginosa. 2. Klebsiella urinary tract infection. 3. Clostridium difficile diarrhea. 4. Low IgA level. MEDICATIONS: The patient has been receiving cefepime for the Pseudomonas and Klebsiella infections and p.o. vancomycin for Clostridium difficile diarrhea. Unfortunately, there is no medication we can give the patient to increase her IgA level. PHYSICAL EXAMINATION: Vital Signs: Temperature is 98.2 degrees, pulse 102, respirations 15, blood pressure 150/72. Generally: This is a somewhat ill-appearing, elderly female. She is in no acute distress. She looks much better than when she came in the hospital. Head, eyes, ears, nose, and throat: She can hear my spoken words and see near objects. She does not have any white patches on her tongue. Neck: She does not have any meningismus. Lungs: There were bibasilar rales. Cardiovascular: Heart rate is regular. Abdomen: Soft and nontender. Neurologic: The patient is alert. She can move her extremities. There is no tremor. Integument: No rash was noted. LABORATORY AND X-RAY: CBC shows a white count of 11,460, hemoglobin 11, platelet count 183,000. Creatinine is 0.9. GFR is 60. Sputum culture grew Pseudomonas. Urine culture grew Klebsiella. ASSESSMENT AND PLAN: 1. The patient is going to be discharged either today or tomorrow. The treatment for her Pseudomonas pneumonia and Klebsiella urinary tract infection will be Levaquin 500 mg p.o. daily. For her Clostridium difficile she will be getting vancomycin 125 mg p.o. every 6 hours. Both will be continued for a total of 2 weeks. I have requested the patient have a follow-up appointment with me in the office at which time the patient will be examined and also the patient will have an chest x-ray made. Dr. Wayne is treating the patient and he knows about the patient's low immunoglobulin A level. Also, he knows that the patient is being treated with antibiotics. 2. Comorbidities: She is elderly. She has an IgA deficiency and she also has multiple myeloma. cc: Danielito Clement MD
--- NOTE | 2019-03-09 22:13 | DISCHARGE SUMMARY ---
ADMISSION DATE: 03/05/2019 DISCHARGE DATE: 03/09/2019 PRIMARY CARE PHYSICIAN: Dr. Da Silva. CONSULTATIONS: With Infectious Disease, Hematology/Oncology. ADMISSION DIAGNOSES: 1. Right upper lobe pneumonia. 2. Hypertension. 3. Urinary tract infection. 4. Gastroesophageal reflux disease. 5. Seasonal allergies. 6. Multiple myeloma. DISCHARGE DIAGNOSES: 1. Right upper lobe pneumonia, positive for Pseudomonas. 2. Clostridium difficile colitis which is antigen positive and toxin negative. 3. Klebsiella pneumoniae urinary tract infection. 4. Hypertension. 5. Gastroesophageal reflux disease. 6. Multiple myeloma. SUMMARY OF FINDINGS: This is an 83-year-old female who presented to the ER with a 48 hour complaint of productive cough, fever, and just generalized body aches and feeling weak. The daughter checked her temperature before coming to the emergency room, and it was 102. On arrival to the emergency room, her fever was 103.1 with room air saturation of 92%. Chest x-ray revealed a right upper lobe pneumonia. Blood cultures were obtained and showed no growth after 48 hours. Her sputum had Pseudomonas aeruginosa in it. Her urine culture grew out a Klebsiella pneumoniae. She has been treated appropriately for those infections. We also started her on antibiotics, treating her for C difficile. It appears she has been afebrile for greater than 24 hours and overall stable with improvement, and it is felt that she can safely be discharged home at this time. DISCHARGE MEDICATIONS: Aspirin 81 mg p.o. at bedtime, cetirizine 10 mg p.o. daily, losartan 50 mg p.o. daily, simvastatin 80 mg p.o. at bedtime, warfarin 1 mg p.o. at bedtime, Tylenol Extra Strength 650 mg p.o. every 8 to 12 hours p.r.n., Velcade 2.1 mg subcutaneously as directed, vitamin D3 at 1000 units p.o. daily, cyanocobalamin 1000 mcg IM as ordered, dexamethasone 20 mg p.o. as ordered, ferrous sulfate 325 mg p.o. b.i.d., Combivent Respimat 1 puff inhalation every 6 hours, Levaquin 500 mg p.o. daily #14 with no refills, methocarbamol 750 mg p.o. t.i.d. p.r.n., Prilosec 20 mg p.o. daily, Valtrex 500 mg p.o. daily and Vancocin 125 mg p.o. every 6 hours for 14 days. FOLLOWUP: She will need to follow up with her primary care physician, with her technical planner/oncologist, and with Infectious Disease. She will have [facility]. She will call the office for all of those to set up her appointments. This a 35 minute discharge. Dictated by TONJA Fatima for Ludwig Baldwin MD cc: TONJA Fatima MD Adnan A. Seljuki, MD Leroy F. Harris, MD Naveen T. Lobo, MD
== END 2019-03-09 17:34 | disposition home health service (06) | DRG 871 ==
LOC: ED 05:57 → 3N 09:36 → SUATTDRO 09:36 → 3N 03-07 16:33
PROVIDERS: ATTEND Internal Medicine
CPT/HCPCS: 71010; 71020; 71045; 71046; 80048; 80053; 81001; 82784; 83605; 85025; 85610; 87040; 87070; 87077; 87088; 87186; 87205; 87275; 87276; 87324; 87449; 87804; 89055; 89220; 94640; 94760; 94761; 94799; 96365; 96375; 97161; 99285; A9270; J0456; J0692; J0696; J2920; J2930